=== PATIENT | female | born 1935 | race Caucasian/White ===

== ENCOUNTER 2018-07-10 09:17 | Inpatient (IN) | payer MEDICARE, OTHER ==
[~2018-07-10] VITALS: Ht 160 cm; Wt 63.5 kg
[~2018-07-10 09:17] MED LIST: ACETAMINOP650 MG/20. PO; ALBUTEROL/ATROVENT INH; ALBUTEROL2.5 MG/3 M HHN; AMBIEN5 MG ORAL; AMBIEN5 MG PO; ARICEPT5 MG ORAL; ASPIR 8181 MG ORAL; ATIVAN1 MG PO; ATIVAN2 MG/1 ML PO; ATORVASTATIN CA10 MG ORAL; ATROVENT INH S2.5 ML HHN; BACTRIM-DS1 EA PO; BENADRYL50 MG ORAL; BISACODYL5 MG PO; CALCIUM + VITA1 EACH PO; CARVEDILOL3.125 MG ORAL; CENTRUM SILVER1 EAC1 PO; CENTRUM TABLET1 EACH PO; DAILY VITAMIN1 EACH PO; DILAUDID1 MG/ML PO; DILAUDID2 MG PO; DSS100 MG PO; DULCOLAX10 MG RC; FERROUS SULFAT325 M1 PO; FERROUS SULFAT325 MG PO; HEPARIN SO5000 UNIT/ SUBQ; HEPARIN SO5000 UNIT3 SUBQ; HYDROCODON-ACE1 EAC4 PO; IMMODIUM PO; IMODIUM A-D2 M1 PO; LIDODERM700 M1 TOPIC; MEGACE ORA400 MG/10 PO; MILK OF MA400 MG/5 M PO; MILK OF MAGNESIA PO; MIRTAZAPINE15 MG PO; MOM30 ML PO; MORPHINE 44 MG/1 ML IVP; MULTIVITAMINS1 EAC1 PO; MYLANTA30 ML PO; NEURONTIN100 MG ORAL; NEURONTIN300 MG ORAL; NORCO 10-325 T1 EACH ORAL; ONDANSETRON ODT4 MG PO; PRADAXA150 MG ORAL; PROSTAT; PROSTAT 101 PO; REMERON15 M1 PO; ROCEPHIN250 MG IVPB; TRAMADOL HCL100 MG PO; TRAMADOL HCL50 MG PO; TYLENOL 8 HOUR650 MG PO; VANCOMYCIN1 GM/2502 IVPB; VIBRAMYCIN100 MG ORAL; VITAMIN C500 M1 PO; VITAMIN C500 MG PO; ZOFRAN ODT4 MG PO
[2018-07-10] MEDS ORDERED: ATORVASTATIN CA10 MG ORAL (09:27)
[2018-07-10] MEDS ORDERED: NEURONTIN100 MG ORAL (09:27)
[2018-07-10 09:28] VITALS: BP 99/86
[2018-07-10] MEDS ORDERED: MIRALAX17 G2 ORAL (09:30)
[2018-07-10] MEDS ORDERED: HYDROCORTISONE-30 GM TOPIC (09:30)
[2018-07-10] MEDS ORDERED: METOPROLOL SUCC25 MG ORAL (09:30)
[2018-07-10] MEDS ORDERED: LISINOPRIL5 MG ORAL (09:30)
[2018-07-10] MEDS ORDERED: Vancomycin 1 GM in NS 275 ML IV ONE (09:45)
[2018-07-10] MEDS ORDERED: Isovue-300 100ml vial INJ PRN (09:45)
[2018-07-10] MEDS ORDERED: Piperacillin/Tazobactam 3.375 GM in NS 110 ML IVPB ONE (09:45)
[2018-07-10] MEDS ORDERED: NS 1000ml 1,900 ML IVLG ONE (09:45)
[2018-07-10 10:20] LABS: EOSINOPHILS % (AUTO) 4.8 % (0.0-3.0); HEMATOCRIT 45.6 % (37.0-47.0); HEMOGLOBIN 14.9 G/DL (12.0-16.0); LYMPHOCYTES % (AUTO) 29.9 % (20.0-45.0); MEAN CORPUSCULAR VOLUME 90 FL (80-99); MONOCYTES % (AUTO) 6.9 % (1.0-10.0); NEUTROPHILS % (AUTO) 57.4 % (45.0-75.0); PLATELET COUNT 436 K/UL (150-450); RED BLOOD COUNT 5.07 M/UL (4.20-5.40); RED CELL DISTRIBUTION WIDTH 11.3 % (11.6-14.8); WHITE BLOOD COUNT 14.1 K/UL (4.8-10.8)
[2018-07-10 10:27] LABS: ANION GAP 10 mmol/L (5-15); BLOOD UREA NITROGEN 18 mg/dL (7-18); CALCIUM 9.7 MG/DL (8.5-10.1); CARBON DIOXIDE 27 MMOL/L (21-32); CHLORIDE 98 MMOL/L (98-107); CREATININE 0.6 MG/DL (0.55-1.30); POTASSIUM 4.1 MMOL/L (3.5-5.1); SODIUM 135 MMOL/L (136-145)
[2018-07-10 10:40] LABS: ALANINE AMINOTRANSFERASE 16 U/L (12-78); ALBUMIN 3.2 G/DL (3.4-5.0); ALBUMIN/GLOBULIN RATIO 0.5 (1.0-2.7); ALKALINE PHOSPHATASE 103 U/L (46-116); ASPARTATE AMINO TRANSFERASE 18 U/L (15-37); BILIRUBIN,TOTAL 0.3 MG/DL (0.2-1.0); CREATINE KINASE 32 U/L (26-308)
[2018-07-10 10:43] LABS: APPEARANCE,URINE TURBID; BILIRUBIN, URINE NEGATIVE (NEGATIVE); GLUCOSE, URINE (UA) NEGATIVE (NEGATIVE); KETONES,URINE NEGATIVE (NEGATIVE); LEUKOCYTE ESTERASE ,URINE 3+ (NEGATIVE); NITRITE,URINE NEGATIVE (NEGATIVE); PH,URINE 7 (4.5-8.0); PROTEIN,URINE 3+ (NEGATIVE); UROBILINOGEN,URINE NORMAL MG/DL (0.0-1.0)
[2018-07-10 10:46] LABS: COLOR,URINE YELLOW
[2018-07-10 11:30] VITALS: BP 109/60
--- NOTE | 2018-07-10 11:38 | Diagnostic Imaging Report ---
EXAM: XR Chest, 1 View CLINICAL HISTORY: DYSPNEA TECHNIQUE: Frontal view of the chest. COMPARISON: Chest x-ray report 03/20/11, images not available. FINDINGS: Lungs: Hypoventilatory lungs. Bibasilar lung atelectasis. Elevated right hemidiaphragm. Mild interstitial prominence. Pleural space: Unremarkable. No pneumothorax. Heart: Unremarkable. No cardiomegaly. Mediastinum: Unremarkable. Bones/joints: Unremarkable. Vasculature: Ectatic aorta. IMPRESSION: Hypoventilatory lungs. Bibasilar lung atelectasis. Mild interstitial prominence. May be mild interstitial edema or pneumonitis.
--- NOTE | 2018-07-10 12:09 | Emergency Room Report ---
History of Present Illness General Chief Complaint: General Complaint Source: Patient, EMS Present Illness HPI Patient sent in for infection in the left hip area. She states has been draining for several days. She's not taking antibiotics at this time. She only complains about pain when she rolls over onto that side. At that time she says the pain is 6/10. She denies any fevers or chills. The patient has paraplegia she states from a nurse pulling on her legs in the past. No NVD, cough, dysuria, back pain, other joint pain. Normal BMs. H/O dementia - question veracity of answers. Chewing on straw because of bad teeth. Last admitted 06/2016 with these diagnoses: 1. Sepsis. 2. Acute on chronic osteomyelitis with draining sinus. 3. Right femoral neck hip pathologic fracture. 4. Dementia. 5. Hypertension. 6. Cellulitis of the buttocks. 7. Atrial fibrillation, on anticoagulation. 8. Hyperlipidemia. 9. Functional quadriplegia. Allergies: Coded Allergies: SULFA (SULFONAMIDE ANTIBIOTICS) (Verified Allergy, Unknown, 10/18/09) Patient History Limited by: medical condition Past Medical History: see triage record, old chart reviewed Social History: Denies: smoking - distant, alcohol use, drug use Social History Narrative born [place] - [facility] Reviewed Nursing Documentation: PMH: Agreed; PSxH: Agreed Nursing Documentation-PM Past Medical History: No History, Except For Hx Cardiac Problems: Yes - A-fib Hx Hypertension: Yes Hx COPD: Yes Hx Cancer: No Hx Gastrointestinal Problems: No Hx Dementia: Yes Review of Systems All Other Systems: negative except mentioned in HPI Physical Exam Vital Signs Date Time Temp Pulse Resp B/P (MAP) Pulse Ox O2 Delivery O2 Flow Rate FiO2 07/10/18 09:18 97.5 72 18 126/70 92 Room Air General Appearance: Chronically Ill Head: normocephalic, atraumatic Eyes: bilateral eye normal inspection, bilateral eye PERRL ENT: moist mucus membranes - poor dentition Neck: supple, no meningismus, no bony tend Respiratory: chest non-tender, lungs clear, normal breath sounds Cardiovascular #1: regular rate, rhythm Cardiovascular #2: 2+ radial (L) Gastrointestinal: normal inspection, normal bowel sounds, non tender, soft Genitourinary: no CVA tenderness Musculoskeletal: back normal, other - flexion contractures bilat lower legs Neurologic: DTRs symmetric, speech normal, no Babinski, motor weakness - bilat lower legs, other - able to use arms and hands, oriented - X2 Reflexes: 1+ knee (R), 1+ knee (L) Skin: other - draining unstagable decubitus L hip Medical Decision Making Diagnostic Impression: Primary Impression: Cellulitis of left hip Additional Impressions: UTI (urinary tract infection) Qualified Codes: N39.0 - Urinary tract infection, site not specified Decubitus ulcer, hip, left, unstageable Functional paraparesis Dementia Qualified Codes: F03.90 - Unspecified dementia without behavioral disturbance ER Course Patient with L hip draining wound. DDX: osteomyelitis, cellulitis, abscess amongst others. Evaluation with cultures, EKG, CXR and CT of pelvis/hips with contrast. Treatment for pain. No URI sy, but CXR indicated. Also need to exclude AMI. Patient treated with IV hydration and antibiotics. Wound culture sent. EKG no injury, NSR (not a fib). CXR hypoventilation. Labs with elevated WBC, ihsan ESR. CMP essentially normal. UA with pyuria. Initial lactate slightly elevated (repeat normal). Unable to use IV contrast. CT done without. (Unsure why changed to abd/pelvis) . Patient needs continued IV antibiotics and probable MRI to evaluate if osteo ( though with normal sed rate, doubt). Admit med Dr. Anderson. Laboratory Tests Test 07/10/18 10:00 07/10/18 10:12 White Blood Count 14.1 K/UL (4.8-10.8) H Red Blood Count 5.07 M/UL (4.20-5.40) Hemoglobin 14.9 G/DL (12.0-16.0) Hematocrit 45.6 % (37.0-47.0) Mean Corpuscular Volume 90 FL (80-99) Mean Corpuscular Hemoglobin 29.5 PG (27.0-31.0) Mean Corpuscular Hemoglobin Concent 32.8 G/DL (32.0-36.0) Red Cell Distribution Width 11.3 % (11.6-14.8) L Platelet Count 436 K/UL (150-450) Mean Platelet Volume 5.9 FL (6.5-10.1) L Neutrophils (%) (Auto) 57.4 % (45.0-75.0) Lymphocytes (%) (Auto) 29.9 % (20.0-45.0) Monocytes (%) (Auto) 6.9 % (1.0-10.0) Eosinophils (%) (Auto) 4.8 % (0.0-3.0) H Basophils (%) (Auto) 1.0 % (0.0-2.0) Erythrocyte Sedimentation Rate 27 MM/HR (0-30) Prothrombin Time 10.4 SEC (9.30-11.50) Prothrombin Time INR 1.0 (0.9-1.1) PTT 28 SEC (23-33) Sodium Level 135 MMOL/L (136-145) L Potassium Level 4.1 MMOL/L (3.5-5.1) Chloride Level 98 MMOL/L (98-107) Carbon Dioxide Level 27 MMOL/L (21-32) Anion Gap 10 mmol/L (5-15) Blood Urea Nitrogen 18 mg/dL (7-18) Creatinine 0.6 MG/DL (0.55-1.30) Estimate Glomerular Filtration Rate mL/min (>60) Glucose Level 107 MG/DL (74-106) H Lactic Acid Level 2.10 mmol/L (0.4-2.0) H Calcium Level 9.7 MG/DL (8.5-10.1) Magnesium Level 1.8 MG/DL (1.8-2.4) Total Bilirubin 0.3 MG/DL (0.2-1.0) Aspartate Amino Transferase (AST) 18 U/L (15-37) Alanine Aminotransferase (ALT) 16 U/L (12-78) Alkaline Phosphatase 103 U/L (46-116) Total Creatine Kinase 32 U/L (26-308) Troponin I 0.000 ng/mL (0.000-0.056) C-Reactive Protein, Quantitative 1.1 mg/dL (0.00-0.90) H Pro-B-Type Natriuretic Peptide 93 pg/mL (0-125) Total Protein 9.9 G/DL (6.4-8.2) H Albumin 3.2 G/DL (3.4-5.0) L Globulin 6.7 g/dL Albumin/Globulin Ratio 0.5 (1.0-2.7) L Urine Color Yellow Urine Appearance Turbid Urine pH 7 (4.5-8.0) Urine Specific [place] 1.010 (1.005-1.035) Urine Protein 3+ (NEGATIVE) H Urine Glucose (UA) Negative (NEGATIVE) Urine Ketones Negative (NEGATIVE) Urine Blood 5+ (NEGATIVE) H Urine Nitrite Negative (NEGATIVE) Urine Bilirubin Negative (NEGATIVE) Urine Urobilinogen Normal MG/DL (0.0-1.0) Urine Leukocyte Esterase 3+ (NEGATIVE) H Urine RBC 20-30 /HPF (0 - 2) H Urine WBC Tntc /HPF (0 - 2) H Urine Squamous Epithelial Cells Few /LPF (NONE/OCC) Urine Amorphous Sediment Many /LPF (NONE) H Urine Bacteria Many /HPF (NONE) H EKG Diagnostic Results Rate: normal Rhythm: NSR ST Segments: no acute changes Rhythm Strip Diag. Results EP Interpretation: yes Rhythm: NSR, no PVC's, no ectopy Chest X-Ray Diagnostic Results Chest X-Ray Diagnostic Results : Chest X-Ray Ordered: Yes # of Views/Limited/Complete: 1 View Indication: Other Interpretation: no consolidation, no effusion, no pneumothorax, other - hypoventilation Impression: Other Electronically Signed by: Parag Husain MD CT/MRI/US Diagnostic Results CT/MRI/US Diagnostic Results : Imaging Test Ordered: pelvis and hip - but abd and pelvis done Impression 1. Vertical lucency bilateral sacrum may be insufficiency fractures. 2. Osteopenic. T9, T12, L1 and L3 mild compression deformities are age- indeterminate. 3. Colonic diverticulosis without acute diverticulitis. 4. 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 5. 5.3 cm fecal distended rectum. Moderate colonic stool load/constipation. 6. Small air in the urinary bladder may be from recent catheterization, correlate for gas producing cystitis. Thickening of the urinary bladder. Last Vital Signs Date Time Temp Pulse Resp B/P (MAP) Pulse Ox O2 Delivery O2 Flow Rate FiO2 07/10/18 20:00 96.8 54 16 143/83 (103) 94 07/10/18 15:47 Room Air Status: improved Disposition: ADMITTED INPATIENT Condition: Serious Referrals: Dallin Anderson DO (PCP) Parag Husain MD Jul 10, 2018 12:09
[2018-07-10] MEDS ORDERED: oxyCODONE HCL/Acetaminophen 5/325mg ORAL ONE (12:45)
[2018-07-10 14:00] VITALS: BP 110/77
[2018-07-10] MEDS ORDERED: Vancomycin 1gm inj IVPB ONE (14:11)
[2018-07-10] MEDS ORDERED: Morphine Sulfate 2mg/ml Inj IVP PRN (14:45)
[2018-07-10] MEDS ORDERED: Miralax 17gm pkt ORAL PRN (14:45)
[2018-07-10] MEDS ORDERED: Mylanta II UD 30ml ORAL PRN (14:45)
[2018-07-10] MEDS ORDERED: LORazepam Inj 2mg/ml 1ml IV PRN (14:45)
--- NOTE | 2018-07-10 14:57 | Diagnostic Imaging Report ---
EXAM: CT Abdomen and Pelvis With Intravenous Contrast CLINICAL HISTORY: OSTEOMY TECHNIQUE: Axial computed tomography images of the abdomen and pelvis with intravenous contrast. CTDI is 16.82 mGy and DLP is 1090 mGy-cm. One or more of the following dose reduction techniques were used: automated exposure control, adjustment of the mA and/or kV according to patient size, use of iterative reconstruction technique. COMPARISON: CT pelvis 05/13/13 FINDINGS: Lung bases: Bibasilar lung atelectasis. ABDOMEN: Liver: Prominent left lobe of the liver. Tiny low-density lesions right lobe of the liver measuring 5 mm. Gallbladder and bile ducts: Unremarkable. No calcified stones. No ductal dilation. Pancreas: Unremarkable. No mass. No ductal dilation. Spleen: Unremarkable. No splenomegaly. Adrenals: Unremarkable. No mass. Kidneys and ureters: 7 mm right renal hyperdense lesion. No hydronephrosis. Stomach and bowel: Colonic diverticulosis without acute diverticulitis. 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 5.3 cm fecal distended rectum. Moderate colonic stool load/constipation. PELVIS: Appendix: No findings to suggest acute appendicitis. Bladder: Small air in the urinary bladder may be from recent catheterization, correlate for gas producing cystitis. Thickening of the urinary bladder. Reproductive: Uterus absent. ABDOMEN and PELVIS: Intraperitoneal space: Unremarkable. No free air. No significant fluid collection. Bones/joints: Vertical lucency bilateral sacrum may be insufficiency fractures. Osteopenic. T9, T12, L1 and L3 mild compression deformities are age-indeterminate. Osteopenic. Old right pelvic fracture. Old femoral intratrochanteric fracture with deformity. Hyperdense left femoral head and absence of the femoral neck. Residual femoral stem prosthesis with a thin rim of lucency around the femoral stem. No dislocation. Soft tissues: Left lower back subcutaneous 2 x 3.2 cm there may be a sebaceous cyst. Vasculature: Atherosclerotic vascular disease. No abdominal aortic aneurysm. Lymph nodes: Unremarkable. No enlarged lymph nodes. IMPRESSION: 1. Vertical lucency bilateral sacrum may be insufficiency fractures. 2. Osteopenic. T9, T12, L1 and L3 mild compression deformities are age- indeterminate. 3. Colonic diverticulosis without acute diverticulitis. 4. 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 5. 5.3 cm fecal distended rectum. Moderate colonic stool load/constipation. 6. Small air in the urinary bladder may be from recent catheterization, correlate for gas producing cystitis. Thickening of the urinary bladder.
[2018-07-10 15:24] VITALS: BP 130/53
[2018-07-10 16:37] VITALS: BP 116/55
[2018-07-10 20:00] VITALS: BP 143/83
[2018-07-10] MEDS: Zolpidem 5mg tab ORAL PRN (23:55)
[2018-07-11] VITALS: BP 135/65
[2018-07-11 04:00] VITALS: BP 127/53
[2018-07-11 07:32] LABS: BASOPHILS % (AUTO) 0.8 % (0.0-2.0); EOSINOPHILS % (AUTO) 3.6 % (0.0-3.0); HEMATOCRIT 37.1 % (37.0-47.0); HEMOGLOBIN 12.2 G/DL (12.0-16.0); LYMPHOCYTES % (AUTO) 37.8 % (20.0-45.0); MEAN CORPUSCULAR VOLUME 90 FL (80-99); MONOCYTES % (AUTO) 8.5 % (1.0-10.0); NEUTROPHILS % (AUTO) 49.4 % (45.0-75.0); PLATELET COUNT 415 K/UL (150-450); RED BLOOD COUNT 4.14 M/UL (4.20-5.40); RED CELL DISTRIBUTION WIDTH 11.2 % (11.6-14.8); WHITE BLOOD COUNT 10.5 K/UL (4.8-10.8)
[2018-07-11 07:49] LABS: ALANINE AMINOTRANSFERASE 14 U/L (12-78); ALBUMIN 2.7 G/DL (3.4-5.0); ALBUMIN/GLOBULIN RATIO 0.5 (1.0-2.7); ALKALINE PHOSPHATASE 87 U/L (46-116); ANION GAP 9 mmol/L (5-15); ASPARTATE AMINO TRANSFERASE 16 U/L (15-37); BILIRUBIN,TOTAL 0.2 MG/DL (0.2-1.0); BLOOD UREA NITROGEN 9 mg/dL (7-18); CALCIUM 8.7 MG/DL (8.5-10.1); CARBON DIOXIDE 25 MMOL/L (21-32); CHLORIDE 100 MMOL/L (98-107); CHOLESTEROL 131 MG/DL (< 200); CREATININE 0.5 MG/DL (0.55-1.30); HDL CHOLESTEROL 51 MG/DL (40-60); SODIUM 134 MMOL/L (136-145); TRIGLYCERIDES 76 MG/DL (30-150)
[2018-07-11 08:00] VITALS: BP 129/78
[2018-07-11] MEDS: Nystatin Powder 100,000 units/gm 15gm TOPIC SCH ×3 (08:30→17:41)
--- NOTE | 2018-07-11 09:45 | History and Physical Report ---
DATE OF ADMISSION: 07/10/2018 TIME SEEN: 8 a.m. CONSULTANTS: 1. Shaun Castellon M.D. 2. Sha Clark M.D. 3. Bassam Mccollum M.D. CHIEF COMPLAINT: Left hip cellulitis, draining. BRIEF HISTORY: This is an 83-year-old female, who lives at [facility], presents with two-day increased left hip draining cellulitis and pain. She does have a history of left hip trauma, status post surgery with nonhealing wound. The patient came to [facility], diagnosed with the above, admitted to medical floor for further treatment. Currently, calm in bed, actually slightly anxious in bed, oriented x3, in no acute distress. REVIEW OF SYSTEMS: No chest pain. No shortness of breath. No nausea, vomiting, or diarrhea. PAST MEDICAL HISTORY: Left hip trauma, status post surgery and hip drainage, cellulitis, and weakness. PAST SURGICAL HISTORY: Left hip. MEDICATIONS: Include nystatin, Tylenol, morphine, polyethylene glycol, Zolpidem, lorazepam, vancomycin, and levofloxacin. ALLERGIES: Sulfa. SOCIAL HISTORY: No smoking. No alcohol. No intravenous drug abuse. FAMILY HISTORY: Noncontributory. PHYSICAL EXAMINATION: GENERAL: Calm in bed, oriented x3, slightly anxious. VITAL SIGNS: Temperature is 96, pulse 68, respirations 17, and blood pressure 127/53. CARDIOVASCULAR: No murmur. LUNGS: Distant and clear. ABDOMEN: Bowel sounds positive. Nontender. Nondistended EXTREMITIES: No cyanosis, clubbing, or edema. Hip and knee flexed about 90 degrees. Left hip dressing clean and dry. NEUROLOGIC: The patient moves all extremities, slightly weak, especially lower extremities. LABORATORY DATA: Laboratories at this time show initial white count , otherwise CBC is normal. BMP shows sodium 134, creatinine 0.5. Albumin 2.7. Otherwise, BMP is normal. Urinalysis shows 3+ leukocyte esterase. ASSESSMENT: 1. Left hip cellulitis. 2. UTI. 3. Hip pain. 4. Weakness. 5. Hypertension. 6. Decubitus ulcer. 7. Malnutrition. PLAN: 1. OT, PT, and dietary. 2. Followup wound care. 3. Antibiotic per Infectious Disease. 4. CBC and BMP in the morning. 5. Resume home medications. 6. Pain control. 7. We will continue to follow the patient. Dallin Anderson D.O. DR: JANE JOB#: [id number] CC:
[2018-07-11 12:00] VITALS: BP 129/78
--- NOTE | 2018-07-11 12:04 | Consultation ---
History of Present Illness General Date patient seen: Jul 11, 2018 Time patient seen: 10:00 Chief Complaint: left hip infection Referring physician: dr Anderson Reason for Consultation: in hospital management Present Illness HPI 83 y/old female, resident of nursing home facility, with PMH of chronic osteomyelitis, dementia, hypertension ,atrial fibrillation, hyperlipidemia, right femoral neck pathological fracture, was sent for evaluation due to infection in the left hip. Patient had left hip un-stageable pressure ulcer ,present on admission. Patient reported draining at the site for several days . Patient was not on any antibiotics . She reported pain upon rolling from [id number], 6 out of 10 on a scale 1-10. No fever, no chills. Upon evaluation vital signs were stable, no fever. Laboratory workup revealed leukocytosis ,elevated lactic acid ,urinalysis with evidence of UTI. Troponin negative . EKG revealed normal sinus rhythm, no acute ischemic changes. Chest x-ray revealed hypoventilatory lungs with bibasilar lung atelectasis and mild interstitial prominence. CT of the abdomen and pelvis revealed 1. Vertical lucency bilateral in sacrum , may be insufficiency fractures. 2. Osteopenia. T9, T12, L1 and L3 mild compression deformities - age- indeterminate. 3. Colonic diverticulosis without acute diverticulitis. 4. 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 5. 5.3 cm fecal distended rectum. Moderate colonic stool load/constipation. 6. Small air in the urinary bladder may be from recent catheterization, correlate for gas producing cystitis. Thickening of the urinary bladder. Patient was admitted for further management Allergies: Coded Allergies: SULFA (SULFONAMIDE ANTIBIOTICS) (Verified Allergy, Unknown, 10/18/09) Medication History Scheduled Ascorbic Acid (Vitamin C), 500 MG PO DAILY, (Reported) Aspirin* (Aspir 81*), 81 MG ORAL DAILY, (Reported) Atorvastatin Calcium* (Lipitor*), 10 MG ORAL BEDTIME, (Reported) Atorvastatin Calcium* (Lipitor*), 10 MG ORAL BEDTIME, (Reported) Calcium Carbonate/Vitamin D3 (Calcium + Vitamin D Tablet), 1 EACH PO DAILY, ( Reported) Carvedilol* (Carvedilol*), 3.125 MG ORAL BID, (Reported) Ceftriaxone Sod (Rocephin), 2 GM IVPB DAILY, (Reported) Dabigatran Etexilate Mesylate* (Pradaxa*), 150 MG ORAL BID, (Reported) Docusate Sodium* (Dss*), 100 MG PO BID, (Reported) Donepezil Hcl* (Aricept*), 5 MG ORAL DAILY, (Reported) Doxycycline Hyclate* (Vibramycin*), 100 MG ORAL BID, (Reported) Ferrous Sulfate* (Ferrous Sulfate*), 325 MG PO TID, (Reported) Gabapentin (Neurontin), 300 MG ORAL THREE TIMES A DAY, (Reported) Gabapentin* (Neurontin*), 200 MG ORAL THREE TIMES A DAY, (Reported) Gabapentin* (Neurontin*), 300 MG ORAL THREE TIMES A DAY, (Reported) Heparin Sodium,Porcine/Pf (Heparin Sod 5,000 Unit/ 0.5 Ml), 5,000 UNIT SUBQ Q12HR, (Reported) Hydrocodone Bit/Acetaminophen 5-500 (Vicodin 5-500), 1 EACH PO PRN, (Reported) Lidocaine (Lidoderm), 1 PATCH TOPIC DAILY, (Reported) Lisinopril (Lisinopril*), 10 MG ORAL DAILY, (Reported) Megestrol Acetate (Megestrol Acetate), 400 MG PO BID, (Reported) Metoprolol Succinate* (Metoprolol Succinate*), 25 MG ORAL DAILY, (Reported) Mirtazapine* (Remeron*), 7.5 MG PO QHS, (Reported) Multivitamin (Daily Vitamin), 1 EACH PO DAILY, (Reported) Multivitamin W-Minerals/Lutein (Centrum Silver Tablet), 1 EACH PO DAILY, ( Reported) Tramadol Hcl* (Ultram*), 50 MG PO Q6H, (Reported) Trimethoprim/Sulfamethoxazole (Bactrim Ds Tablet), 1 EA PO BID, (Reported) Vancomycin Hcl/D5w (Vancomycin-D5w 1 G/250 Ml), 750 GM IVPB Q24H, (Reported) Zolpidem Tartrate* (Ambien*), 5 MG PO HS, (Reported) [Prostat 101], 30 ML PO DAILY, (Reported) Scheduled PRN Acetaminophen* (Tylenol*), 650 MG PO Q4H PRN, (Reported) Al Hydroxide/Mg Hydroxide (Mylanta), 30 ML PO ACHS PRN, (Reported) Albuterol Sulfate* (Albuterol Sulfate Hhn*), 2.5 MG HHN Q4H PRN, (Reported) Bisacodyl (Dulcolax), 10 MG RC DAILY PRN, (Reported) Bisacodyl* (Dulcolax*), 10 MG PO DAILY PRN, (Reported) Diphenhydramine HCl (Diphenhydramine HCl), 50 MG ORAL Q6H PRN for Itching, ( Reported) Hydrocodone Bit/Acetaminophen 10-325* (Clifford 10-325*), 1 TAB ORAL Q4H PRN for For Pain, (Reported) Hydrocortisone/Aloe Vera 1%* (Hydrocortisone-Aloe 1% Cream*), 1 APPLIC TOPIC Q6H PRN for Itching, (Reported) Hydromorphone HCl (Dilaudid), 2 MG PO Q4H PRN, (Reported) Ipratropium [place] (Atrovent Inh Soln), 2.5 ML HHN Q4HR PRN, (Reported) Loperamide Hcl (Imodium A-D), 2 MG PO Q4 PRN, (Reported) Lorazepam* (Ativan*), 1 MG PO Q6HR PRN, (Reported) Lorazepam* (Ativan*), 1 MG PO Q6 PRN, (Reported) Magnesium Hydroxide (Milk of Magnesia), 30 ML PO DAILY PRN, (Reported) Morphine Sulfate/Pf (Morphine 4 Mg/Ml Carpuject), 4 MG IVP Q4HR PRN for For Pain , (Reported) Ondansetron Odt* (Zofran Odt*), 4 MG PO Q4HR PRN, (Reported) Polyethylene Glycol 3350* (Miralax*), 17 GM ORAL DAILY PRN for Constipation, ( Reported) Zolpidem Tartrate* (Ambien*), 5 MG ORAL BEDTIME PRN for Insomnia, (Reported) [Albuterol/Atrovent], 1 UNIT INH Q4 PRN, (Reported) [Immodium], 2 MG PO Q4HR PRN, (Reported) [Milk Of Magnesia], 30 ML PO DAILY PRN, (Reported) Miscellaneous Medications Fa/Mv,Ca,Iron,Min/Lycopene/Lut (Centrum Tablet), 1 EACH PO, (Reported) Magnesium Hydroxide (Milk Of Magnesia), 400 MG PO, (Reported) Patient History History Provided By: Medical Record Healthcare decision maker Resuscitation status Full Code Advanced Directive on File No Past Medical/Surgical History Past Medical/Surgical History: (1) Hip fracture (2) Anemia (3) HTN (hypertension) (4) Hyperlipidemia (5) Dementia (6) Decubitus ulcer, hip, left, unstageable Review of Systems Constitutional: Reports: weakness Eye: Reports: no symptoms ENT: Reports: hearing loss Respiratory: Reports: no symptoms Cardiovascular: Reports: no symptoms Gastrointestinal: Reports: constipation Genitourinary: Reports: incontinence, urgency Musculoskeletal: Reports: muscle stiffness, other - osteopenia, compression fractures( per chart) Skin: Reports: other - left hip decub ucler POA Psychiatric: Reports: other - dementia Neurological: Reports: no symptoms Endocrine: Reports: no symptoms Hematologic/Lymphatic: Reports: no symptoms ROS Narrative all info mainly obtained from EMR due to patient's dementia and inability to answer most of the questions Physical Exam General Appearance: no apparent distress, alert - able to answer only simple questions , confused Lines, tubes and drains: peripheral HEENT: normocephalic, atraumatic, anicteric, mucous membranes moist Neck: non-tender, supple Respiratory/Chest: lungs clear - with moderate air exchange , no respiratory distress, no accessory muscle use Cardiovascular/Chest: normal peripheral pulses, normal rate Abdomen: non tender, soft Skin Exam: warm/dry Neurologic: no motor/sensory deficits, abnormal gait, alert Musculoskeletal: atrophy - BLE Last 24 Hour Vital Signs Date Time Temp Pulse Resp B/P (MAP) Pulse Ox O2 Delivery O2 Flow Rate FiO2 07/11/18 09:00 Room Air 07/11/18 08:00 97.7 69 20 129/78 (95) 96 07/11/18 04:00 96.8 68 17 127/53 (77) 97 07/11/18 00:00 96.6 62 17 135/65 (88) 95 07/10/18 21:00 Room Air 07/10/18 20:00 96.8 54 16 143/83 (103) 94 07/10/18 16:37 96.8 58 17 116/55 (75) 97 07/10/18 15:47 98.4 62 16 130/53 96 Room Air 07/10/18 15:24 98.4 62 16 130/53 96 Room Air 07/10/18 14:00 98.0 72 17 110/77 100 Room Air 07/10/18 13:27 98.4 Intake and Output 07/10/18 07/11/18 19:00 07:00 Intake Total 2400 ml Balance 2400 ml Intake Oral 240 ml IV Total 2160 ml # Voids 2 3 # Bowel Movements 1 Laboratory Tests Test 07/10/18 13:43 07/11/18 04:50 Lactic Acid Level 1.10 mmol/L (0.66-2.22) White Blood Count 10.5 K/UL (4.8-10.8) Red Blood Count 4.14 M/UL (4.20-5.40) L Hemoglobin 12.2 G/DL (12.0-16.0) Hematocrit 37.1 % (37.0-47.0) Mean Corpuscular Volume 90 FL (80-99) Mean Corpuscular Hemoglobin 29.5 PG (27.0-31.0) Mean Corpuscular Hemoglobin Concent 32.9 G/DL (32.0-36.0) Red Cell Distribution Width 11.2 % (11.6-14.8) L Platelet Count 415 K/UL (150-450) Mean Platelet Volume 5.8 FL (6.5-10.1) L Neutrophils (%) (Auto) 49.4 % (45.0-75.0) Lymphocytes (%) (Auto) 37.8 % (20.0-45.0) Monocytes (%) (Auto) 8.5 % (1.0-10.0) Eosinophils (%) (Auto) 3.6 % (0.0-3.0) H Basophils (%) (Auto) 0.8 % (0.0-2.0) Sodium Level 134 MMOL/L (136-145) L Potassium Level 4.0 MMOL/L (3.5-5.1) Chloride Level 100 MMOL/L (98-107) Carbon Dioxide Level 25 MMOL/L (21-32) Anion Gap 9 mmol/L (5-15) Blood Urea Nitrogen 9 mg/dL (7-18) Creatinine 0.5 MG/DL (0.55-1.30) L Estimat Glomerular Filtration Rate mL/min (>60) Glucose Level 83 MG/DL (74-106) Calcium Level 8.7 MG/DL (8.5-10.1) Total Bilirubin 0.2 MG/DL (0.2-1.0) Aspartate Amino Transf (AST/SGOT) 16 U/L (15-37) Alanine Aminotransferase (ALT/SGPT) 14 U/L (12-78) Alkaline Phosphatase 87 U/L (46-116) Total Protein 8.3 G/DL (6.4-8.2) H Albumin 2.7 G/DL (3.4-5.0) L Globulin 5.6 g/dL Albumin/Globulin Ratio 0.5 (1.0-2.7) L Triglycerides Level 76 MG/DL (30-150) Cholesterol Level 131 MG/DL (< 200) LDL Cholesterol 75 mg/dL (<100) HDL Cholesterol 51 MG/DL (40-60) Cholesterol/HDL Ratio 2.6 (3.3-4.4) L Thyroid Stimulating Hormone (TSH) 3.022 uiU/mL (0.358-3.740) Height (Feet): 5 Height (Inches): 3.00 Weight (Pounds): 140 Medications Current Medications Medications (Trade) Dose Ordered Sig/Andi Route PRN Reason Start Time Stop Time Status Last Admin Dose Admin Acetaminophen (Tylenol) 650 mg Q4H PRN ORAL Mild Pain/Temp > 100.5 07/10/18 20:16 08/09/18 20:15 07/10/18 20:37 Al Hydroxide/Mg Hydroxide (Mylanta II) 30 ml Q6H PRN ORAL dyspepsia 07/10/18 14:45 08/09/18 14:44 Dextrose (Dextrose 50%) 25 ml Q30M PRN IV Hypoglycemia 07/10/18 15:00 08/09/18 14:48 Dextrose (Dextrose 50%) 50 ml Q30M PRN IV hypoglycemia 07/10/18 15:00 08/09/18 14:59 Iopamidol (Isovue-300 100ml) 100 ml NOW PRN INJ Radiology Procedure 07/10/18 09:45 Lorazepam (Ativan 2mg/ml 1ml) 0.5 mg Q4H PRN IV For Anxiety 07/10/18 14:45 07/17/18 14:44 Morphine Sulfate (Morphine Sulfate) 1 mg Q4H PRN IVP For Pain 07/10/18 14:45 07/17/18 14:44 Nystatin (Nystop Powder) 1 applic THREE TIMES A DAY TOPIC 07/11/18 09:00 08/10/18 08:59 07/11/18 08:30 Ondansetron HCl (Zofran) 4 mg Q6H PRN IVP Nausea & Vomiting 07/10/18 14:45 08/09/18 14:44 Polyethylene Glycol (Miralax) 17 gm HSPRN PRN ORAL Constipation 07/10/18 14:45 08/09/18 14:44 Zolpidem Tartrate (Ambien) 5 mg HSPRN PRN ORAL Insomnia 07/10/18 14:45 07/17/18 14:44 07/10/18 23:55 Assessment/Plan Assessment/Plan ASSESSMENT Probably sepsis UTI Chronic osteomyelitis Left hip cellulitis Left hip pressure ulcer, present on admission un-stageable Osteopenia with multiple compression fractures, probably old Constipation Functional quadriplegia Hypertension Atrial fibrillation Dementia PLAN of CARE [facility] floor empiric antibiotics f/up with cx ID consult pain management wound care per protocol BP management with BB and PRESTON rate control with BB , currently in sinus rhythm continue ASA and statin, lipid panel stable , no anticoagulation for now , given high risk for falls fall precautions ortho eval pending as per PMD PT/OT dietary eval and recs to be included in POC to improve nutritional status Venous duplex bilateral lower extremity continue Aricept bowel regimen supportive care case discussed and evaluated by supervising physician Griselda Roberson NP Jul 11, 2018 12:04
[2018-07-11] MEDS ORDERED: Miralax 17gm pkt ORAL PRN (12:15)
[2018-07-11] MEDS ORDERED: Albuterol/Ipratropium 3ml neb HHN PRN (12:36)
[2018-07-11 15:40] VITALS: BP 123/72
[2018-07-11] MEDS ORDERED: Levofloxacin 500mg tab ORAL SCH (16:30)
[2018-07-11] MEDS ORDERED: cefTRIAXone 1 GM in D5W 55 ML IVPB SCH (17:00)
[2018-07-11] MEDS: Docusate 100mg cap ORAL SCH (17:41)
[2018-07-11 20:00] VITALS: BP 110/50
[2018-07-11] MEDS: Zolpidem 5mg tab ORAL PRN (23:14)
[2018-07-12] VITALS: BP 133/63
[2018-07-12 04:02] VITALS: BP 114/55
[2018-07-12 07:31] LABS: BASOPHILS % (AUTO) 1.4 % (0.0-2.0); HEMOGLOBIN 14.3 G/DL (12.0-16.0); LYMPHOCYTES % (AUTO) 42.8 % (20.0-45.0); MEAN CORPUSCULAR VOLUME 89 FL (80-99); MONOCYTES % (AUTO) 11.5 % (1.0-10.0); NEUTROPHILS % (AUTO) 39.3 % (45.0-75.0); PLATELET COUNT 380 K/UL (150-450); RED BLOOD COUNT 4.74 M/UL (4.20-5.40); RED CELL DISTRIBUTION WIDTH 10.8 % (11.6-14.8); WHITE BLOOD COUNT 6.9 K/UL (4.8-10.8)
[2018-07-12 07:46] LABS: ANION GAP 9 mmol/L (5-15); BLOOD UREA NITROGEN 9 mg/dL (7-18); CALCIUM 8.9 MG/DL (8.5-10.1); CARBON DIOXIDE 25 MMOL/L (21-32); CHLORIDE 99 MMOL/L (98-107); CREATININE 0.6 MG/DL (0.55-1.30); POTASSIUM 4.1 MMOL/L (3.5-5.1); SODIUM 133 MMOL/L (136-145)
[2018-07-12 08:00] VITALS: BP 116/57
[2018-07-12] MEDS: Aspirin EC 81mg tab ORAL SCH (08:37)
[2018-07-12] MEDS: Lisinopril 10mg tab ORAL SCH (08:37)
[2018-07-12] MEDS: Donepezil 5mg Tab ORAL SCH (08:37)
[2018-07-12] MEDS: Docusate 100mg cap ORAL SCH ×2 (08:39→17:41)
[2018-07-12] MEDS: Memantine 10mg tab ORAL SCH ×2 (08:39→17:41)
[2018-07-12] MEDS: Nystatin Powder 100,000 units/gm 15gm TOPIC SCH ×3 (09:11→17:37)
[2018-07-12 12:00] VITALS: BP 120/61
--- NOTE | 2018-07-12 13:08 | Diagnostic Imaging Report ---
APPROVED REPORT CPT Code: 19703 Present Symptoms Comments: Pain Technically difficult study. Limited compression due to pain and (patient has BLE contractures of the hip and knee). RIGHT LEG: Venous imaging reveals a patent deep venous system. There is no evidence of thrombus within the common and superficial femoral veins. The greater saphenous vein is also within normal limits. Doppler indicates normal spontaneous flow within these segments. The popliteal or tibial segment not well visualized. LEFT LEG: Venous imaging reveals a patent deep venous system. There is no evidence of thrombus within the femoral, popliteal or tibial segments. The greater saphenous vein is also within normal limits. Doppler indicates normal spontaneous flow within these segments.
--- NOTE | 2018-07-12 13:10 | General Progress Note ---
Assessment/Plan Problem List: (1) Malnutrition ICD Codes: E46 - Unspecified protein-calorie malnutrition SNOMED: 59413714 (2) Sepsis ICD Codes: A41.9 - Sepsis, unspecified organism SNOMED: 60883039 (3) Left hip pain ICD Codes: M25.552 - Pain in left hip SNOMED: 74547015 (4) Decubitus ulcer, hip, left, unstageable ICD Codes: L89.220 - Pressure ulcer of left hip, unstageable SNOMED: 100646624 (5) HTN (hypertension) ICD Codes: I10 - Essential (primary) hypertension SNOMED: 98423244 Status: stable, progressing Assessment/Plan ot pt diet wound care abx sx eval cbc bmp am dc plan Subjective Constitutional: Reports: weakness Allergies: Coded Allergies: SULFA (SULFONAMIDE ANTIBIOTICS) (Verified Allergy, Unknown, 10/18/09) All Systems: reviewed and negative except above Subjective sl anxious in bed eating Objective Last 24 Hour Vital Signs Date Time Temp Pulse Resp B/P (MAP) Pulse Ox O2 Delivery O2 Flow Rate FiO2 07/12/18 12:31 78 18 Room Air 21 07/12/18 09:07 Room Air 07/12/18 08:37 114/55 07/12/18 08:00 97.6 61 18 116/57 (76) 98 07/12/18 04:02 97.4 58 18 114/55 (74) 97 07/12/18 00:00 97.9 59 18 133/63 (86) 94 07/11/18 22:49 Room Air 07/11/18 20:03 71 18 Room Air 21 07/11/18 20:00 97.5 57 19 110/50 (70) 94 07/11/18 17:41 75 132/73 07/11/18 15:40 98.1 75 20 123/72 (89) 95 Intake and Output 07/11/18 07/12/18 19:00 07:00 Intake Total 900 ml Balance 900 ml Intake Oral 900 ml # Voids 1 1 Laboratory Tests 07/12/18 07:00: White Blood Count 6.9, Red Blood Count 4.74, Hemoglobin 14.3, Hematocrit 42.0, Mean Corpuscular Volume 89, Mean Corpuscular Hemoglobin 30.2, Mean Corpuscular Hemoglobin Concent 34.1, Red Cell Distribution Width 10.8L, Platelet Count 380, Mean Platelet Volume 6.0L, Neutrophils (%) (Auto) 39.3L, Lymphocytes (%) (Auto) 42.8, Monocytes (%) (Auto) 11.5H, Eosinophils (%) (Auto) 5.0H, Basophils (%) ( Auto) 1.4, Sodium Level 133L, Potassium Level 4.1, Chloride Level 99, Carbon Dioxide Level 25, Anion Gap 9, Blood Urea Nitrogen 9, Creatinine 0.6, Estimat Glomerular Filtration Rate , Glucose Level 101, Calcium Level 8.9 Height (Feet): 5 Height (Inches): 3.00 Weight (Pounds): 140 General Appearance: lethargic EENT: normal ENT inspection Neck: normal alignment Cardiovascular: normal peripheral pulses, normal rate, regular rhythm Respiratory/Chest: chest wall non-tender, lungs clear, normal breath sounds Abdomen: normal bowel sounds, non tender, soft Extremities: normal inspection Edema: no edema noted Arm (L), no edema noted Arm (R), no edema noted Leg (L), no edema noted Leg (R), no edema noted Pedal (L), no edema noted Pedal (R), no edema noted Generalized Neurologic: responsive, motor weakness Skin: normal pigmentation, warm/dry Objective hip knee contracture 90 degrees, wound dressing c&d Dallin Anderson DO Jul 12, 2018 13:10
--- NOTE | 2018-07-12 14:25 | Consultation ---
History of Present Illness General Date patient seen: Jul 12, 2018 Chief Complaint: General Complaint Referring physician: dr Anderson Reason for Consultation: wound Present Illness HPI 83 year old female who is a longterm facility resident with PMHx of chronic osteomyelitis, dementia, hypertension ,atrial fibrillation, hyperlipidemia, right femoral neck pathological fracture, etc, who was sent for evaluation due to infection in the left hip wound. Patient had a left hip un- stageable pressure ulcer present on admission with drainage. Wound noted on admission and surgery called to assist with care and management. patient seen, chart reviewed, patient examined. Allergies: Coded Allergies: SULFA (SULFONAMIDE ANTIBIOTICS) (Verified Allergy, Unknown, 10/18/09) Medication History Scheduled Ascorbic Acid (Vitamin C), 500 MG PO DAILY, (Reported) Aspirin* (Aspir 81*), 81 MG ORAL DAILY, (Reported) Atorvastatin Calcium* (Lipitor*), 10 MG ORAL BEDTIME, (Reported) Atorvastatin Calcium* (Lipitor*), 10 MG ORAL BEDTIME, (Reported) Calcium Carbonate/Vitamin D3 (Calcium + Vitamin D Tablet), 1 EACH PO DAILY, ( Reported) Carvedilol* (Carvedilol*), 3.125 MG ORAL BID, (Reported) Ceftriaxone Sod (Rocephin), 2 GM IVPB DAILY, (Reported) Dabigatran Etexilate Mesylate* (Pradaxa*), 150 MG ORAL BID, (Reported) Docusate Sodium* (Dss*), 100 MG PO BID, (Reported) Donepezil Hcl* (Aricept*), 5 MG ORAL DAILY, (Reported) Doxycycline Hyclate* (Vibramycin*), 100 MG ORAL BID, (Reported) Ferrous Sulfate* (Ferrous Sulfate*), 325 MG PO TID, (Reported) Gabapentin (Neurontin), 300 MG ORAL THREE TIMES A DAY, (Reported) Gabapentin* (Neurontin*), 200 MG ORAL THREE TIMES A DAY, (Reported) Gabapentin* (Neurontin*), 300 MG ORAL THREE TIMES A DAY, (Reported) Heparin Sodium,Porcine/Pf (Heparin Sod 5,000 Unit/ 0.5 Ml), 5,000 UNIT SUBQ Q12HR, (Reported) Hydrocodone Bit/Acetaminophen 5-500 (Vicodin 5-500), 1 EACH PO PRN, (Reported) Lidocaine (Lidoderm), 1 PATCH TOPIC DAILY, (Reported) Lisinopril (Lisinopril*), 10 MG ORAL DAILY, (Reported) Megestrol Acetate (Megestrol Acetate), 400 MG PO BID, (Reported) Metoprolol Succinate* (Metoprolol Succinate*), 25 MG ORAL DAILY, (Reported) Mirtazapine* (Remeron*), 7.5 MG PO QHS, (Reported) Multivitamin (Daily Vitamin), 1 EACH PO DAILY, (Reported) Multivitamin W-Minerals/Lutein (Centrum Silver Tablet), 1 EACH PO DAILY, ( Reported) Tramadol Hcl* (Ultram*), 50 MG PO Q6H, (Reported) Trimethoprim/Sulfamethoxazole (Bactrim Ds Tablet), 1 EA PO BID, (Reported) Vancomycin Hcl/D5w (Vancomycin-D5w 1 G/250 Ml), 750 GM IVPB Q24H, (Reported) Zolpidem Tartrate* (Ambien*), 5 MG PO HS, (Reported) [Prostat 101], 30 ML PO DAILY, (Reported) Scheduled PRN Acetaminophen* (Tylenol*), 650 MG PO Q4H PRN, (Reported) Al Hydroxide/Mg Hydroxide (Mylanta), 30 ML PO ACHS PRN, (Reported) Albuterol Sulfate* (Albuterol Sulfate Hhn*), 2.5 MG HHN Q4H PRN, (Reported) Bisacodyl (Dulcolax), 10 MG RC DAILY PRN, (Reported) Bisacodyl* (Dulcolax*), 10 MG PO DAILY PRN, (Reported) Diphenhydramine HCl (Diphenhydramine HCl), 50 MG ORAL Q6H PRN for Itching, ( Reported) Hydrocodone Bit/Acetaminophen 10-325* (Lyle 10-325*), 1 TAB ORAL Q4H PRN for For Pain, (Reported) Hydrocortisone/Aloe Vera 1%* (Hydrocortisone-Aloe 1% Cream*), 1 APPLIC TOPIC Q6H PRN for Itching, (Reported) Hydromorphone HCl (Dilaudid), 2 MG PO Q4H PRN, (Reported) Ipratropium [place] (Atrovent Inh Soln), 2.5 ML HHN Q4HR PRN, (Reported) Loperamide Hcl (Imodium A-D), 2 MG PO Q4 PRN, (Reported) Lorazepam* (Ativan*), 1 MG PO Q6HR PRN, (Reported) Lorazepam* (Ativan*), 1 MG PO Q6 PRN, (Reported) Magnesium Hydroxide (Milk of Magnesia), 30 ML PO DAILY PRN, (Reported) Morphine Sulfate/Pf (Morphine 4 Mg/Ml Carpuject), 4 MG IVP Q4HR PRN for For Pain , (Reported) Ondansetron Odt* (Zofran Odt*), 4 MG PO Q4HR PRN, (Reported) Polyethylene Glycol 3350* (Miralax*), 17 GM ORAL DAILY PRN for Constipation, ( Reported) Zolpidem Tartrate* (Ambien*), 5 MG ORAL BEDTIME PRN for Insomnia, (Reported) [Albuterol/Atrovent], 1 UNIT INH Q4 PRN, (Reported) [Immodium], 2 MG PO Q4HR PRN, (Reported) [Milk Of Magnesia], 30 ML PO DAILY PRN, (Reported) Miscellaneous Medications Fa/Mv,Ca,Iron,Min/Lycopene/Lut (Centrum Tablet), 1 EACH PO, (Reported) Magnesium Hydroxide (Milk Of Magnesia), 400 MG PO, (Reported) Patient History History Provided By: Patient, Medical Record, PMD Healthcare decision maker Resuscitation status Full Code Advanced Directive on File No Past Medical/Surgical History Past Medical/Surgical History: (1) Hyponatremia (2) Cellulitis and abscess of buttock (3) Chronic osteomyelitis with draining sinus (4) Pain (5) Decubitus ulcer, hip, left, unstageable (6) Functional paraparesis (7) Dementia (8) UTI (urinary tract infection) (9) Cellulitis of left hip (10) Anemia (11) Hip fracture (12) Hyperlipidemia (13) HTN (hypertension) (14) Malnutrition (15) Sepsis (16) Left hip pain Review of Systems All Other Systems: negative except mentioned in HPI Physical Exam General Appearance: no apparent distress Lines, tubes and drains: peripheral HEENT: normocephalic, mucous membranes moist Neck: normal inspection Respiratory/Chest: normal breath sounds, no respiratory distress, no accessory muscle use Abdomen: normal bowel sounds, non tender, soft, no organomegaly, no mass Extremities: other - left hip ulcer with serous drainage Skin Exam: warm/dry Neurologic: alert, responsive Last 24 Hour Vital Signs Date Time Temp Pulse Resp B/P (MAP) Pulse Ox O2 Delivery O2 Flow Rate FiO2 07/12/18 12:31 78 18 Room Air 21 07/12/18 09:07 Room Air 07/12/18 08:37 114/55 07/12/18 08:00 97.6 61 18 116/57 (76) 98 07/12/18 04:02 97.4 58 18 114/55 (74) 97 07/12/18 00:00 97.9 59 18 133/63 (86) 94 07/11/18 22:49 Room Air 07/11/18 20:03 71 18 Room Air 21 07/11/18 20:00 97.5 57 19 110/50 (70) 94 07/11/18 17:41 75 132/73 07/11/18 15:40 98.1 75 20 123/72 (89) 95 Intake and Output 07/11/18 07/12/18 19:00 07:00 Intake Total 900 ml Balance 900 ml Intake Oral 900 ml # Voids 1 1 Laboratory Tests Test 07/12/18 07:00 White Blood Count 6.9 K/UL (4.8-10.8) Red Blood Count 4.74 M/UL (4.20-5.40) Hemoglobin 14.3 G/DL (12.0-16.0) Hematocrit 42.0 % (37.0-47.0) Mean Corpuscular Volume 89 FL (80-99) Mean Corpuscular Hemoglobin 30.2 PG (27.0-31.0) Mean Corpuscular Hemoglobin Concent 34.1 G/DL (32.0-36.0) Red Cell Distribution Width 10.8 % (11.6-14.8) L Platelet Count 380 K/UL (150-450) Mean Platelet Volume 6.0 FL (6.5-10.1) L Neutrophils (%) (Auto) 39.3 % (45.0-75.0) L Lymphocytes (%) (Auto) 42.8 % (20.0-45.0) Monocytes (%) (Auto) 11.5 % (1.0-10.0) H Eosinophils (%) (Auto) 5.0 % (0.0-3.0) H Basophils (%) (Auto) 1.4 % (0.0-2.0) Sodium Level 133 MMOL/L (136-145) L Potassium Level 4.1 MMOL/L (3.5-5.1) Chloride Level 99 MMOL/L (98-107) Carbon Dioxide Level 25 MMOL/L (21-32) Anion Gap 9 mmol/L (5-15) Blood Urea Nitrogen 9 mg/dL (7-18) Creatinine 0.6 MG/DL (0.55-1.30) Estimat Glomerular Filtration Rate mL/min (>60) Glucose Level 101 MG/DL (74-106) Calcium Level 8.9 MG/DL (8.5-10.1) Height (Feet): 5 Height (Inches): 3.00 Weight (Pounds): 140 Medications Current Medications Medications (Trade) Dose Ordered Sig/Andi Route PRN Reason Start Time Stop Time Status Last Admin Dose Admin Acetaminophen (Tylenol) 650 mg Q4H PRN ORAL Mild Pain/Temp > 100.5 07/10/18 20:16 08/09/18 20:15 07/11/18 23:14 Al Hydroxide/Mg Hydroxide (Mylanta II) 30 ml Q6H PRN ORAL dyspepsia 07/10/18 14:45 08/09/18 14:44 Albuterol/ Ipratropium (Albuterol/ Ipratropium) 3 ml Q4H PRN HHN Shortness of Breath 07/11/18 12:36 07/16/18 12:35 Aspirin (Ecotrin) 81 mg DAILY ORAL 07/12/18 09:00 08/11/18 08:59 07/12/18 08:37 Atorvastatin Calcium (Lipitor) 10 mg BEDTIME ORAL 07/11/18 21:00 08/10/18 20:59 07/11/18 20:43 Carvedilol (Coreg) 3.125 mg BID ORAL 07/11/18 18:00 08/10/18 17:59 07/11/18 17:41 Dextrose (Dextrose 50%) 25 ml Q30M PRN IV Hypoglycemia 07/10/18 15:00 08/09/18 14:48 Dextrose (Dextrose 50%) 50 ml Q30M PRN IV hypoglycemia 07/10/18 15:00 08/09/18 14:59 Docusate Sodium (Colace) 100 mg BID ORAL 07/11/18 18:00 08/10/18 17:59 07/12/18 08:39 Donepezil HCl (Aricept) 5 mg DAILY ORAL 07/12/18 09:00 08/11/18 08:59 07/12/18 08:37 Gabapentin (Neurontin) 200 mg THREE TIMES A DAY ORAL 07/11/18 13:00 08/10/18 12:59 07/12/18 13:30 Levofloxacin (Levaquin) 750 mg QOD ORAL 07/12/18 09:00 07/19/18 08:59 07/12/18 08:39 Lisinopril (Zestril) 10 mg DAILY ORAL 07/12/18 09:00 08/11/18 08:59 07/12/18 08:37 Lorazepam (Ativan 2mg/ml 1ml) 0.5 mg Q4H PRN IV For Anxiety 07/10/18 14:45 07/17/18 14:44 Memantine (Namenda) 10 mg BID ORAL 07/12/18 09:00 08/11/18 08:59 07/12/18 08:39 Morphine Sulfate (Morphine Sulfate) 1 mg Q4H PRN IVP For Pain 07/10/18 14:45 07/17/18 14:44 Nystatin (Nystop Powder) 1 applic THREE TIMES A DAY TOPIC 07/11/18 09:00 08/10/18 08:59 07/12/18 13:30 Ondansetron HCl (Zofran) 4 mg Q6H PRN IVP Nausea & Vomiting 07/10/18 14:45 08/09/18 14:44 Polyethylene Glycol (Miralax) 17 gm HSPRN PRN ORAL Constipation 07/10/18 14:45 08/09/18 14:44 Zolpidem Tartrate (Ambien) 5 mg HSPRN PRN ORAL Insomnia 07/10/18 14:45 07/17/18 14:44 07/11/18 23:14 Assessment/Plan Problem List: (1) Decubitus ulcer, hip, left, unstageable Assessment & Plan: left hip open wound full thickness 1cm opening with serous drainage. 1cm x 1cm with unknown depth. tender on evaluation. periwound erythema. no purulent drainage. mild foul odor. etiology unknown but could be related to pressure ulceration from foreign object. tender on exam. dressings saturated with serous drainage. -clean site with NS, apply therahoney, apply alginate or gauze, cover with foam dressings daily and prn -turn q2h -air mattress -heel protectors -okay for diet thank you. will follow with recs ICD Codes: L89.220 - Pressure ulcer of left hip, unstageable SNOMED: [id number] Status: stable LakshmiGama Jul 12, 2018 14:25
--- NOTE | 2018-07-12 15:00 | Pulmonology Progress Note ---
Assessment/Plan Problems: (1) Cellulitis and abscess of buttock (2) Sepsis (3) Decubitus ulcer, hip, left, unstageable (4) Functional paraparesis (5) Dementia (6) HTN (hypertension) Assessment/Plan improving WBC lower continue abx wound care symptomatic treatment monitor BP dvt prophylaxis Subjective ROS Limited/Unobtainable: No Constitutional: Reports: no symptoms HEENT: Repors: no symptoms Respiratory: Reports: no symptoms Allergies: Coded Allergies: SULFA (SULFONAMIDE ANTIBIOTICS) (Verified Allergy, Unknown, 10/18/09) Objective Last 24 Hour Vital Signs Date Time Temp Pulse Resp B/P (MAP) Pulse Ox O2 Delivery O2 Flow Rate FiO2 07/12/18 12:31 78 18 Room Air 21 07/12/18 12:00 98.0 65 18 120/61 (80) 97 07/12/18 09:07 Room Air 07/12/18 08:37 114/55 07/12/18 08:00 97.6 61 18 116/57 (76) 98 07/12/18 04:02 97.4 58 18 114/55 (74) 97 07/12/18 00:00 97.9 59 18 133/63 (86) 94 07/11/18 22:49 Room Air 07/11/18 20:03 71 18 Room Air 21 07/11/18 20:00 97.5 57 19 110/50 (70) 94 07/11/18 17:41 75 132/73 07/11/18 15:40 98.1 75 20 123/72 (89) 95 Intake and Output 07/11/18 07/12/18 19:00 07:00 Intake Total 900 ml Balance 900 ml Intake Oral 900 ml # Voids 1 1 General Appearance: WD/WN HEENT: normocephalic, anicteric, PERRL Respiratory/Chest: lungs clear Breasts: no masses Cardiovascular: regular rhythm, no JVD Abdomen: no organomegaly Extremities: no cyanosis Microbiology Date/Time Source Procedure Growth Status 07/10/18 10:10 Blood Blood Culture - Preliminary Resulted 07/10/18 10:00 Blood Blood Culture - Preliminary NO GROWTH AFTER 24 HOURS Resulted 07/10/18 10:12 Urine,Clean Catch Urine Culture - Preliminary Gram Negative Bacillus 1 Resulted 07/10/18 10:25 Rectum - Final NO CARBAPENEM-RESISTANT ENTEROBACTERI... Complete 07/10/18 10:00 Hip Left Gram Stain - Final Resulted 07/10/18 10:00 Wound Culture - Preliminary Staphylococcus Aureus Resulted Laboratory Tests 07/12/18 07:00: White Blood Count 6.9, Red Blood Count 4.74, Hemoglobin 14.3, Hematocrit 42.0, Mean Corpuscular Volume 89, Mean Corpuscular Hemoglobin 30.2, Mean Corpuscular Hemoglobin Concent 34.1, Red Cell Distribution Width 10.8L, Platelet Count 380, Mean Platelet Volume 6.0L, Neutrophils (%) (Auto) 39.3L, Lymphocytes (%) (Auto) 42.8, Monocytes (%) (Auto) 11.5H, Eosinophils (%) (Auto) 5.0H, Basophils (%) ( Auto) 1.4, Sodium Level 133L, Potassium Level 4.1, Chloride Level 99, Carbon Dioxide Level 25, Anion Gap 9, Blood Urea Nitrogen 9, Creatinine 0.6, Estimat Glomerular Filtration Rate , Glucose Level 101, Calcium Level 8.9 Current Medications Medications (Trade) Dose Ordered Sig/Andi Route PRN Reason Start Time Stop Time Status Last Admin Dose Admin Acetaminophen (Tylenol) 650 mg Q4H PRN ORAL Mild Pain/Temp > 100.5 07/10/18 20:16 08/09/18 20:15 07/11/18 23:14 Al Hydroxide/Mg Hydroxide (Mylanta II) 30 ml Q6H PRN ORAL dyspepsia 07/10/18 14:45 08/09/18 14:44 Albuterol/ Ipratropium (Albuterol/ Ipratropium) 3 ml Q4H PRN HHN Shortness of Breath 07/11/18 12:36 07/16/18 12:35 Aspirin (Ecotrin) 81 mg DAILY ORAL 07/12/18 09:00 08/11/18 08:59 07/12/18 08:37 Atorvastatin Calcium (Lipitor) 10 mg BEDTIME ORAL 07/11/18 21:00 08/10/18 20:59 07/11/18 20:43 Carvedilol (Coreg) 3.125 mg BID ORAL 07/11/18 18:00 08/10/18 17:59 07/11/18 17:41 Dextrose (Dextrose 50%) 25 ml Q30M PRN IV Hypoglycemia 07/10/18 15:00 08/09/18 14:48 Dextrose (Dextrose 50%) 50 ml Q30M PRN IV hypoglycemia 07/10/18 15:00 08/09/18 14:59 Docusate Sodium (Colace) 100 mg BID ORAL 07/11/18 18:00 08/10/18 17:59 07/12/18 08:39 Donepezil HCl (Aricept) 5 mg DAILY ORAL 07/12/18 09:00 08/11/18 08:59 07/12/18 08:37 Gabapentin (Neurontin) 200 mg THREE TIMES A DAY ORAL 07/11/18 13:00 08/10/18 12:59 07/12/18 13:30 Levofloxacin (Levaquin) 750 mg QOD ORAL 07/12/18 09:00 07/19/18 08:59 07/12/18 08:39 Lisinopril (Zestril) 10 mg DAILY ORAL 07/12/18 09:00 08/11/18 08:59 07/12/18 08:37 Lorazepam (Ativan 2mg/ml 1ml) 0.5 mg Q4H PRN IV For Anxiety 07/10/18 14:45 07/17/18 14:44 Memantine (Namenda) 10 mg BID ORAL 07/12/18 09:00 08/11/18 08:59 07/12/18 08:39 Morphine Sulfate (Morphine Sulfate) 1 mg Q4H PRN IVP For Pain 07/10/18 14:45 07/17/18 14:44 Nystatin (Nystop Powder) 1 applic THREE TIMES A DAY TOPIC 07/11/18 09:00 08/10/18 08:59 07/12/18 13:30 Ondansetron HCl (Zofran) 4 mg Q6H PRN IVP Nausea & Vomiting 07/10/18 14:45 08/09/18 14:44 Polyethylene Glycol (Miralax) 17 gm HSPRN PRN ORAL Constipation 07/10/18 14:45 08/09/18 14:44 Zolpidem Tartrate (Ambien) 5 mg HSPRN PRN ORAL Insomnia 07/10/18 14:45 07/17/18 14:44 07/11/18 23:14 Sha Clark MD Jul 12, 2018 15:00
--- NOTE | 2018-07-12 15:22 | Consultation ---
History of Present Illness General Date patient seen: Jul 12, 2018 Chief Complaint: General Complaint Referring physician: dr Anderson Reason for Consultation: wound Present Illness HPI 83 y/o F with hx of chronic OM, Dementia, HTN, Afib on AC, HLD, functional quadriplegia, R femoral neck pathological frature, SNF resident presents to ED on 07/10 L hip wound drainage, pain and concern for infection. OF note, patient has hx of L hip traum with s/p surgical repair with a non healing wound. No f/c, cough, dysuria Of note, patient patient admitted here on 06/2016 for treatment of Chrnoic L hip OM. At that time patient had Strep Alpha hemolytic bacteremia; was treated with 6 weeks of IV Vancomycin and Ceftriaxone. She had hx of MRSA growth from prior wound cx. Plan at that time was to continued lifelong suppressive abx after 6 weeks of IV abx. Im not clear if this was done. Regarding L hip joint, she has had multipe surgiers in the past and has a chronc sinus trach Allergies: Coded Allergies: SULFA (SULFONAMIDE ANTIBIOTICS) (Verified Allergy, Unknown, 10/18/09) Medication History Scheduled Ascorbic Acid (Vitamin C), 500 MG PO DAILY, (Reported) Aspirin* (Aspir 81*), 81 MG ORAL DAILY, (Reported) Atorvastatin Calcium* (Lipitor*), 10 MG ORAL BEDTIME, (Reported) Atorvastatin Calcium* (Lipitor*), 10 MG ORAL BEDTIME, (Reported) Calcium Carbonate/Vitamin D3 (Calcium + Vitamin D Tablet), 1 EACH PO DAILY, ( Reported) Carvedilol* (Carvedilol*), 3.125 MG ORAL BID, (Reported) Ceftriaxone Sod (Rocephin), 2 GM IVPB DAILY, (Reported) Dabigatran Etexilate Mesylate* (Pradaxa*), 150 MG ORAL BID, (Reported) Docusate Sodium* (Dss*), 100 MG PO BID, (Reported) Donepezil Hcl* (Aricept*), 5 MG ORAL DAILY, (Reported) Doxycycline Hyclate* (Vibramycin*), 100 MG ORAL BID, (Reported) Ferrous Sulfate* (Ferrous Sulfate*), 325 MG PO TID, (Reported) Gabapentin (Neurontin), 300 MG ORAL THREE TIMES A DAY, (Reported) Gabapentin* (Neurontin*), 200 MG ORAL THREE TIMES A DAY, (Reported) Gabapentin* (Neurontin*), 300 MG ORAL THREE TIMES A DAY, (Reported) Heparin Sodium,Porcine/Pf (Heparin Sod 5,000 Unit/ 0.5 Ml), 5,000 UNIT SUBQ Q12HR, (Reported) Hydrocodone Bit/Acetaminophen 5-500 (Vicodin 5-500), 1 EACH PO PRN, (Reported) Lidocaine (Lidoderm), 1 PATCH TOPIC DAILY, (Reported) Lisinopril (Lisinopril*), 10 MG ORAL DAILY, (Reported) Megestrol Acetate (Megestrol Acetate), 400 MG PO BID, (Reported) Metoprolol Succinate* (Metoprolol Succinate*), 25 MG ORAL DAILY, (Reported) Mirtazapine* (Remeron*), 7.5 MG PO QHS, (Reported) Multivitamin (Daily Vitamin), 1 EACH PO DAILY, (Reported) Multivitamin W-Minerals/Lutein (Centrum Silver Tablet), 1 EACH PO DAILY, ( Reported) Tramadol Hcl* (Ultram*), 50 MG PO Q6H, (Reported) Trimethoprim/Sulfamethoxazole (Bactrim Ds Tablet), 1 EA PO BID, (Reported) Vancomycin Hcl/D5w (Vancomycin-D5w 1 G/250 Ml), 750 GM IVPB Q24H, (Reported) Zolpidem Tartrate* (Ambien*), 5 MG PO HS, (Reported) [Prostat 101], 30 ML PO DAILY, (Reported) Scheduled PRN Acetaminophen* (Tylenol*), 650 MG PO Q4H PRN, (Reported) Al Hydroxide/Mg Hydroxide (Mylanta), 30 ML PO ACHS PRN, (Reported) Albuterol Sulfate* (Albuterol Sulfate Hhn*), 2.5 MG HHN Q4H PRN, (Reported) Bisacodyl (Dulcolax), 10 MG RC DAILY PRN, (Reported) Bisacodyl* (Dulcolax*), 10 MG PO DAILY PRN, (Reported) Diphenhydramine HCl (Diphenhydramine HCl), 50 MG ORAL Q6H PRN for Itching, ( Reported) Hydrocodone Bit/Acetaminophen 10-325* ([place] 10-325*), 1 TAB ORAL Q4H PRN for For Pain, (Reported) Hydrocortisone/Aloe Vera 1%* (Hydrocortisone-Aloe 1% Cream*), 1 APPLIC TOPIC Q6H PRN for Itching, (Reported) Hydromorphone HCl (Dilaudid), 2 MG PO Q4H PRN, (Reported) Ipratropium [place] (Atrovent Inh Soln), 2.5 ML HHN Q4HR PRN, (Reported) Loperamide Hcl (Imodium A-D), 2 MG PO Q4 PRN, (Reported) Lorazepam* (Ativan*), 1 MG PO Q6HR PRN, (Reported) Lorazepam* (Ativan*), 1 MG PO Q6 PRN, (Reported) Magnesium Hydroxide (Milk of Magnesia), 30 ML PO DAILY PRN, (Reported) Morphine Sulfate/Pf (Morphine 4 Mg/Ml Carpuject), 4 MG IVP Q4HR PRN for For Pain , (Reported) Ondansetron Odt* (Zofran Odt*), 4 MG PO Q4HR PRN, (Reported) Polyethylene Glycol 3350* (Miralax*), 17 GM ORAL DAILY PRN for Constipation, ( Reported) Zolpidem Tartrate* (Ambien*), 5 MG ORAL BEDTIME PRN for Insomnia, (Reported) [Albuterol/Atrovent], 1 UNIT INH Q4 PRN, (Reported) [Immodium], 2 MG PO Q4HR PRN, (Reported) [Milk Of Magnesia], 30 ML PO DAILY PRN, (Reported) Miscellaneous Medications Fa/Mv,Ca,Iron,Min/Lycopene/Lut (Centrum Tablet), 1 EACH PO, (Reported) Magnesium Hydroxide (Milk Of Magnesia), 400 MG PO, (Reported) Medications Narrative Patient History Healthcare decision maker Resuscitation status Full Code Advanced Directive on File No Patient History Narrative Pmhx: as above Shx: No smoking. No alcohol. No intravenous drug abuse. FHx: non contributory Review of Systems All Other Systems: negative except mentioned in HPI Physical Exam Physical Exam Narrative General Appearance: no apparent distress, alert - able to answer only simple questions , confused Lines, tubes and drains: peripheral HEENT: normocephalic, atraumatic, anicteric, mucous membranes moist Neck: non-tender, supple Respiratory/Chest: lungs clear - with moderate air exchange , no respiratory distress, no accessory muscle use Cardiovascular/Chest: normal peripheral pulses, normal rate Abdomen: non tender, soft Skin Exam: warm/dry Neurologic: no motor/sensory deficits, abnormal gait, alert Musculoskeletal: atrophy - BLE Last 24 Hour Vital Signs Date Time Temp Pulse Resp B/P (MAP) Pulse Ox O2 Delivery O2 Flow Rate FiO2 07/12/18 12:31 78 18 Room Air 21 07/12/18 12:00 98.0 65 18 120/61 (80) 97 07/12/18 09:07 Room Air 07/12/18 08:37 114/55 07/12/18 08:00 97.6 61 18 116/57 (76) 98 07/12/18 04:02 97.4 58 18 114/55 (74) 97 07/12/18 00:00 97.9 59 18 133/63 (86) 94 07/11/18 22:49 Room Air 07/11/18 20:03 71 18 Room Air 21 07/11/18 20:00 97.5 57 19 110/50 (70) 94 07/11/18 17:41 75 132/73 07/11/18 15:40 98.1 75 20 123/72 (89) 95 Intake and Output 07/11/18 07/12/18 19:00 07:00 Intake Total 900 ml Balance 900 ml Intake Oral 900 ml # Voids 1 1 Laboratory Tests Test 07/12/18 07:00 White Blood Count 6.9 K/UL (4.8-10.8) Red Blood Count 4.74 M/UL (4.20-5.40) Hemoglobin 14.3 G/DL (12.0-16.0) Hematocrit 42.0 % (37.0-47.0) Mean Corpuscular Volume 89 FL (80-99) Mean Corpuscular Hemoglobin 30.2 PG (27.0-31.0) Mean Corpuscular Hemoglobin Concent 34.1 G/DL (32.0-36.0) Red Cell Distribution Width 10.8 % (11.6-14.8) L Platelet Count 380 K/UL (150-450) Mean Platelet Volume 6.0 FL (6.5-10.1) L Neutrophils (%) (Auto) 39.3 % (45.0-75.0) L Lymphocytes (%) (Auto) 42.8 % (20.0-45.0) Monocytes (%) (Auto) 11.5 % (1.0-10.0) H Eosinophils (%) (Auto) 5.0 % (0.0-3.0) H Basophils (%) (Auto) 1.4 % (0.0-2.0) Sodium Level 133 MMOL/L (136-145) L Potassium Level 4.1 MMOL/L (3.5-5.1) Chloride Level 99 MMOL/L (98-107) Carbon Dioxide Level 25 MMOL/L (21-32) Anion Gap 9 mmol/L (5-15) Blood Urea Nitrogen 9 mg/dL (7-18) Creatinine 0.6 MG/DL (0.55-1.30) Estimat Glomerular Filtration Rate mL/min (>60) Glucose Level 101 MG/DL (74-106) Calcium Level 8.9 MG/DL (8.5-10.1) Height (Feet): 5 Height (Inches): 3.00 Weight (Pounds): 140 Medications Current Medications Medications (Trade) Dose Ordered Sig/Andi Route PRN Reason Start Time Stop Time Status Last Admin Dose Admin Acetaminophen (Tylenol) 650 mg Q4H PRN ORAL Mild Pain/Temp > 100.5 07/10/18 20:16 08/09/18 20:15 07/11/18 23:14 Al Hydroxide/Mg Hydroxide (Mylanta II) 30 ml Q6H PRN ORAL dyspepsia 07/10/18 14:45 08/09/18 14:44 Albuterol/ Ipratropium (Albuterol/ Ipratropium) 3 ml Q4H PRN HHN Shortness of Breath 07/11/18 12:36 07/16/18 12:35 Aspirin (Ecotrin) 81 mg DAILY ORAL 07/12/18 09:00 08/11/18 08:59 07/12/18 08:37 Atorvastatin Calcium (Lipitor) 10 mg BEDTIME ORAL 07/11/18 21:00 08/10/18 20:59 07/11/18 20:43 Carvedilol (Coreg) 3.125 mg BID ORAL 07/11/18 18:00 08/10/18 17:59 07/11/18 17:41 Dextrose (Dextrose 50%) 25 ml Q30M PRN IV Hypoglycemia 07/10/18 15:00 08/09/18 14:48 Dextrose (Dextrose 50%) 50 ml Q30M PRN IV hypoglycemia 07/10/18 15:00 08/09/18 14:59 Docusate Sodium (Colace) 100 mg BID ORAL 07/11/18 18:00 08/10/18 17:59 07/12/18 08:39 Donepezil HCl (Aricept) 5 mg DAILY ORAL 07/12/18 09:00 08/11/18 08:59 07/12/18 08:37 Gabapentin (Neurontin) 200 mg THREE TIMES A DAY ORAL 07/11/18 13:00 08/10/18 12:59 07/12/18 13:30 Levofloxacin (Levaquin) 750 mg QOD ORAL 07/12/18 09:00 07/19/18 08:59 07/12/18 08:39 Lisinopril (Zestril) 10 mg DAILY ORAL 07/12/18 09:00 08/11/18 08:59 07/12/18 08:37 Lorazepam (Ativan 2mg/ml 1ml) 0.5 mg Q4H PRN IV For Anxiety 07/10/18 14:45 07/17/18 14:44 Memantine (Namenda) 10 mg BID ORAL 07/12/18 09:00 08/11/18 08:59 07/12/18 08:39 Morphine Sulfate (Morphine Sulfate) 1 mg Q4H PRN IVP For Pain 07/10/18 14:45 07/17/18 14:44 Nystatin (Nystop Powder) 1 applic THREE TIMES A DAY TOPIC 07/11/18 09:00 08/10/18 08:59 07/12/18 13:30 Ondansetron HCl (Zofran) 4 mg Q6H PRN IVP Nausea & Vomiting 07/10/18 14:45 08/09/18 14:44 Polyethylene Glycol (Miralax) 17 gm HSPRN PRN ORAL Constipation 07/10/18 14:45 08/09/18 14:44 Zolpidem Tartrate (Ambien) 5 mg HSPRN PRN ORAL Insomnia 07/10/18 14:45 07/17/18 14:44 07/11/18 23:14 Assessment/Plan Assessment/Plan Abx: IV Vanco x1 07/10 Zosyn x1 07/10 Levaquin 07/12- Assessment: L hip chronic wound /chronic OM w/ sinus tract- now with increased drainage, likely acute infection -wound cx S. aureus -hx of MRSA in the past -s/p 6 weeks IV Vancomycin and CTX 06/2016 -CT abd/p: Vertical lucency bilateral in sacrum , may be insufficiency fractures. Osteopenia. T9, T12, L1 and L3 mild compression deformities - age- indeterminate. Colonic diverticulosis without acute diverticulitis. 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 5.3 cm fecal distended rectum. Moderate colonic stool load/constipation. Small air in the urinary bladder may be from recent catheterization, correlate for gas producing cystitis. Thickening of the urinary bladder. Probable UTI -u/a wbc TNTC; ucx >100K GNR Afebrile Leukocytosis, SP -CXR: hypoventilatory lungs with bibasilar lung atelectasis and mild interstitial prominence. Dementia HTN Afib on AC HLD functional quadriplegia R femoral neck pathological frature SNF resident Plan: -Continue empiric Levaquin and add PO Doxycycline for MRSA coverage pending cultures -f/u Xray hip -MRI pelvis -f/u cx -Monitor CBC/CMP, temperatures -wound care -Sx f/u Thank you for this consultation. Will continue to follow along with you. Discussed with Heidi Hunter M.D. Jul 12, 2018 15:22
[2018-07-12] MEDS ORDERED: Gadavist 7.5mMol/7.5ml vial IV PRN (15:30)
[2018-07-12 16:00] VITALS: BP 126/64
[2018-07-12 20:00] VITALS: BP 143/65
[2018-07-12] MEDS: Zolpidem 5mg tab ORAL PRN (23:27)
[2018-07-13] VITALS: BP 131/58
[2018-07-13 04:00] VITALS: BP 125/60
[2018-07-13 06:46] LABS: BASOPHILS % (AUTO) 1.6 % (0.0-2.0); EOSINOPHILS % (AUTO) 6.5 % (0.0-3.0); HEMATOCRIT 37.6 % (37.0-47.0); LYMPHOCYTES % (AUTO) 37.2 % (20.0-45.0); MEAN CORPUSCULAR VOLUME 89 FL (80-99); MONOCYTES % (AUTO) 12.5 % (1.0-10.0); NEUTROPHILS % (AUTO) 42.2 % (45.0-75.0); PLATELET COUNT 423 K/UL (150-450); RED BLOOD COUNT 4.22 M/UL (4.20-5.40); RED CELL DISTRIBUTION WIDTH 11.2 % (11.6-14.8); WHITE BLOOD COUNT 8.6 K/UL (4.8-10.8)
[2018-07-13 06:48] LABS: ANION GAP 8 mmol/L (5-15); BLOOD UREA NITROGEN 9 mg/dL (7-18); CALCIUM 8.5 MG/DL (8.5-10.1); CARBON DIOXIDE 27 MMOL/L (21-32); CHLORIDE 97 MMOL/L (98-107); CREATININE 0.6 MG/DL (0.55-1.30); POTASSIUM 3.7 MMOL/L (3.5-5.1); SODIUM 132 MMOL/L (136-145)
[2018-07-13 08:00] VITALS: BP 138/68
[2018-07-13] MEDS: Docusate 100mg cap ORAL SCH ×2 (09:44→18:00)
[2018-07-13] MEDS: Lisinopril 10mg tab ORAL SCH (09:50)
[2018-07-13] MEDS: Aspirin EC 81mg tab ORAL SCH (09:50)
[2018-07-13] MEDS: Memantine 10mg tab ORAL SCH ×2 (09:51→18:00)
[2018-07-13] MEDS: Donepezil 5mg Tab ORAL SCH (09:52)
[2018-07-13] MEDS: Nystatin Powder 100,000 units/gm 15gm TOPIC SCH ×3 (09:57→18:00)
[2018-07-13 12:00] VITALS: BP 125/61
--- NOTE | 2018-07-13 12:32 | General Progress Note ---
Assessment/Plan Problem List: (1) Malnutrition ICD Codes: E46 - Unspecified protein-calorie malnutrition SNOMED: 00026725 (2) Sepsis ICD Codes: A41.9 - Sepsis, unspecified organism SNOMED: 81110857 (3) Left hip pain ICD Codes: M25.552 - Pain in left hip SNOMED: 79951965 (4) Decubitus ulcer, hip, left, unstageable ICD Codes: L89.220 - Pressure ulcer of left hip, unstageable SNOMED: 716635415 (5) HTN (hypertension) ICD Codes: I10 - Essential (primary) hypertension SNOMED: 50762914 Status: stable, progressing Assessment/Plan ot pt diet wound care abx sx eval cbc bmp am dc if clear Subjective Constitutional: Reports: weakness Allergies: Coded Allergies: SULFA (SULFONAMIDE ANTIBIOTICS) (Verified Allergy, Unknown, 10/18/09) All Systems: reviewed and negative except above Subjective sl anxious in bed eating Objective Last 24 Hour Vital Signs Date Time Temp Pulse Resp B/P (MAP) Pulse Ox O2 Delivery O2 Flow Rate FiO2 07/13/18 09:50 140/62 07/13/18 09:49 64 140/62 07/13/18 09:00 Room Air 07/13/18 08:00 97.1 56 18 138/68 (91) 95 07/13/18 04:00 97.3 55 18 125/60 (81) 97 07/13/18 00:00 97.1 59 20 131/58 (82) 95 07/12/18 21:46 61 18 Room Air 21 07/12/18 21:00 Room Air 07/12/18 20:00 97.2 57 20 143/65 (91) 98 07/12/18 17:41 68 126/64 07/12/18 16:00 97.9 68 18 126/64 (84) 97 Intake and Output 07/12/18 07/13/18 19:00 07:00 Intake Total 480 ml 460 ml Balance 480 ml 460 ml Intake Oral 480 ml 460 ml # Voids 3 2 Laboratory Tests 07/13/18 05:20: White Blood Count 8.6, Red Blood Count 4.22, Hemoglobin 13.0, Hematocrit 37.6, Mean Corpuscular Volume 89, Mean Corpuscular Hemoglobin 30.7, Mean Corpuscular Hemoglobin Concent 34.5, Red Cell Distribution Width 11.2L, Platelet Count 423, Mean Platelet Volume 6.1L, Neutrophils (%) (Auto) 42.2L, Lymphocytes (%) (Auto) 37.2, Monocytes (%) (Auto) 12.5H, Eosinophils (%) (Auto) 6.5H, Basophils (%) ( Auto) 1.6, Sodium Level 132L, Potassium Level 3.7, Chloride Level 97L, Carbon Dioxide Level 27, Anion Gap 8, Blood Urea Nitrogen 9, Creatinine 0.6, Estimat Glomerular Filtration Rate , Glucose Level 89, Calcium Level 8.5 Height (Feet): 5 Height (Inches): 3.00 Weight (Pounds): 140 General Appearance: lethargic EENT: normal ENT inspection Neck: normal alignment Cardiovascular: normal peripheral pulses, normal rate, regular rhythm Respiratory/Chest: chest wall non-tender, lungs clear, normal breath sounds Abdomen: normal bowel sounds, non tender, soft Extremities: normal inspection Edema: no edema noted Arm (L), no edema noted Arm (R), no edema noted Leg (L), no edema noted Leg (R), no edema noted Pedal (L), no edema noted Pedal (R), no edema noted Generalized Neurologic: responsive, motor weakness Skin: normal pigmentation, warm/dry Objective hip knee contracture 90 degrees, wound dressing c&Dallin Nayak DO Jul 13, 2018 12:32
--- NOTE | 2018-07-13 13:52 | Pulmonology Progress Note ---
Assessment/Plan Problems: (1) Cellulitis and abscess of buttock (2) Sepsis (3) Decubitus ulcer, hip, left, unstageable (4) Functional paraparesis (5) Dementia (6) HTN (hypertension) Assessment/Plan improving WBC lower continue abx wound care symptomatic treatment monitor BP dvt prophylaxis Subjective Allergies: Coded Allergies: SULFA (SULFONAMIDE ANTIBIOTICS) (Verified Allergy, Unknown, 10/18/09) Objective Last 24 Hour Vital Signs Date Time Temp Pulse Resp B/P (MAP) Pulse Ox O2 Delivery O2 Flow Rate FiO2 07/13/18 09:50 140/62 07/13/18 09:49 64 140/62 07/13/18 09:00 Room Air 07/13/18 08:00 97.1 56 18 138/68 (91) 95 07/13/18 04:00 97.3 55 18 125/60 (81) 97 07/13/18 00:00 97.1 59 20 131/58 (82) 95 07/12/18 21:46 61 18 Room Air 21 07/12/18 21:00 Room Air 07/12/18 20:00 97.2 57 20 143/65 (91) 98 07/12/18 17:41 68 126/64 07/12/18 16:00 97.9 68 18 126/64 (84) 97 Intake and Output 07/12/18 07/13/18 19:00 07:00 Intake Total 480 ml 460 ml Balance 480 ml 460 ml Intake Oral 480 ml 460 ml # Voids 3 2 Laboratory Tests 07/13/18 05:20: White Blood Count 8.6, Red Blood Count 4.22, Hemoglobin 13.0, Hematocrit 37.6, Mean Corpuscular Volume 89, Mean Corpuscular Hemoglobin 30.7, Mean Corpuscular Hemoglobin Concent 34.5, Red Cell Distribution Width 11.2L, Platelet Count 423, Mean Platelet Volume 6.1L, Neutrophils (%) (Auto) 42.2L, Lymphocytes (%) (Auto) 37.2, Monocytes (%) (Auto) 12.5H, Eosinophils (%) (Auto) 6.5H, Basophils (%) ( Auto) 1.6, Sodium Level 132L, Potassium Level 3.7, Chloride Level 97L, Carbon Dioxide Level 27, Anion Gap 8, Blood Urea Nitrogen 9, Creatinine 0.6, Estimat Glomerular Filtration Rate , Glucose Level 89, Calcium Level 8.5 Sha Clark MD Jul 13, 2018 13:52
[2018-07-13 16:00] VITALS: BP 126/64
[2018-07-13] MEDS ORDERED: NAMENDA10 MG ORAL (18:52)
[2018-07-13] MEDS ORDERED: BABY POWDER1 APPLIC TOPIC (18:54)
[2018-07-13 20:00] VITALS: BP 140/80
[2018-07-13] MEDS ORDERED: Zolpidem 5mg tab ORAL PRN (21:50)
--- NOTE | 2018-07-14 01:30 | Progress Note ---
DATE: 07/13/2018 SUBJECTIVE: This is an 83-year-old female patient with cellulitis, but she still has high levels of anxiety, worsened by the stress of her medical illness. That is why her attending has requested daily psychiatric consultation. MENTAL STATUS EXAMINATION: This is an 83-year-old female. Appearance is disheveled. Attitude, irritable and agitated. Affect, guarded and restricted. Intellect poor. Mood depressed and anxious. Motor activity, psychomotor agitation. Intellect poor. Attention span is poor. Orientation x2. Speech is pressured. Thought process, disorganized and illogical. Thought content, no auditory hallucinations or paranoid delusions. Insight and judgment is poor. DIAGNOSIS: Major depressive disorder, rule out generalized anxiety disorder. PLAN: Plan for this patient is to treat her with regimen consisting of Ativan 0.5 mg IV q.4 h. p.r.n. anxiety and agitation. mg three times a day. Provided with 20 minutes of supportive psychotherapy. I encouraged her to interact appropriately with staff and other patients. Chart reviewed and discussed with staff. A 20 minutes of cognitive behavior therapy was provided to identify automatic negative thoughts and help her convert the negative thoughts to more positive thoughts. Jovany Downey M.D. DR: NABILA JOB#: [id number] CC:
--- NOTE | 2018-07-14 02:45 | Consultation ---
DATE OF CONSULTATION: 07/12/2018 NOTE: VERY POOR AUDIO PSYCHOTHERAPY CONSULTATION PROGRESS NOTE CONSULTING PHYSICIAN: Ev Park PsyD. TREATING ATTENDING PHYSICIAN: Dallin Anderson D.O. HISTORY OF PRESENT ILLNESS: The patient is an 83-year-old female patient from [facility]. The patient presented to the hospital for cellulitis of her left hip. Since her admission, the patient has been agitated, irritable, and constantly asking to be returned back to her nursing facility, poor insight into the process of hospitalization. She states that she feels tired of being in the hospital setting. The patient has been told several times by the nursing staff that . The patient is forgetful and disorganized at this time. She has no logical plan for her self-care, requiring hospitalization for stabilization of her symptoms. The patient denies suicidal or homicidal thoughts of ideation. Denies any auditory or visual hallucinations. The patient is able to communicate properly; however, she has been agitated and . PAST MEDICAL HISTORY: The patient presents with history of left hip trauma, status post surgery and drainage, cellulitis, and weakness. ALLERGIES: The patient is allergic to sulfa. SOCIAL HISTORY: The patient denies history of alcohol use, illicit substance use, or smoking cigarettes. PSYCHIATRIC HISTORY: The patient has a history of . SOCIAL HISTORY: The patient is an 83-year-old female. The patient from [facility]. Financially sustained through [employer]. MENTAL STATUS EXAMINATION: The patient is alert and oriented to person, place, and time. Mood is anxious. Affect is labile. Thought process, disorganized. Thought content, negative and catastrophic. She has poor attention and concentration. Poor insight, judgment, and impulse control. Provided the patient with reality orientation cognitive function confused and disoriented. Oriented to person, place, time and situation. The patient was provided with supportive psychotherapy. anxiety, agitation, lability and depression. Provided the patient with cognitive behavioral therapy. adjust the patient's mood with coping skills. negative catastrophic thoughts positive communication with behavioral management. DIAGNOSES: 1. Generalized anxiety disorder. 2. Rule out neurocognitive disorder behavioral disturbances. PLAN: Continue with behavioral management. This clinician has reviewed the patient's chart. Discussed treatment with treatment team. . Ev Park PsyD. DR: SUMANTH JOB#: [id number] CC:
--- NOTE | 2018-07-15 20:13 | Cardiology Report ---
APPROVED REPORT EKG Measurement Heart [id number] Normal sinus rhythm Low voltage QRS Inferior infarct, age undetermined Cannot rule out Anterior infarct, age undetermined Abnormal ECG
--- NOTE | 2018-07-16 08:59 | Discharge Summary ---
Discharge Summary Discharge Summary _ DATE OF ADMISSION: 07/10/2018 DATE OF DISCHARGE: 07/13/2018 REASON FOR ADMISSION: 83 y/old female, resident of shelter facility, with PMH of chronic osteomyelitis, dementia, hypertension , atrial fibrillation on anticoagulation, , hyperlipidemia, right femoral neck pathological fracture, was sent for evaluation due to infection in the left hip. Patient had left hip un-stageable pressure ulcer , present on admission. Patient reported draining at the site for several days . Patient was not on any antibiotics . She reported pain upon rolling from [id number], 6 out of 10 on a scale 1-10. No fever, no chills. Upon evaluation vital signs were stable, no fever. Laboratory workup revealed leukocytosis ,elevated lactic acid ,urinalysis with evidence of UTI. Troponin negative . EKG revealed normal sinus rhythm, no acute ischemic changes. Chest x-ray revealed hypoventilatory lungs with bibasilar lung atelectasis and mild interstitial prominence. CT of the abdomen and pelvis revealed 1. Vertical lucency bilateral in sacrum , may be insufficiency fractures. 2. Osteopenia. T9, T12, L1 and L3 mild compression deformities - age- indeterminate. 3. Colonic diverticulosis without acute diverticulitis. 4. 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 5. 5.3 cm fecal distended rectum. Moderate colonic stool load/constipation. 6. Small air in the urinary bladder may be from recent catheterization, correlate for gas producing cystitis. Thickening of the urinary bladder. Patient was admitted for further management CONSULTANTS: pulmonary Dr. Clark ID specialist Dr. Castellon surgery Dr. Martins psychiatrist Dr. Downey [facility] COURSE: Patient admitted to medical surgical floor and started on empiric antibiotics. ID consult was requested. Urine culture revealed E. coli and Proteus mirabilis. Blood culture 1 out of 4 revealed Diphtheroids, contaminant as per ID specialist. Wound culture of left hip showed MRSA. Antibiotic regimen optimized as per ID specialist recommendations. Patient status post prior 6 weeks of IV vancomycin and ceftriaxone in 06/2016. Venous duplex bilateral lower extremity revealed no evidence of acute DVT. Pain management was addressed. Wound care provided as per surgeon recommendations and to be continued at the shelter facility. Blood pressure was managed with beta-alexandr and PRESTON inhibitor. Rate was controlled with beta-alexandr. Patient was in sinus rhythm. Antiplatelet therapy with aspirin and statin were continued. Lipid panel was stable. No anticoagulation for now, given high risk for falls. Fall precaution maintained. Patient was working with physical and occupational therapists. Dietary recommendation implemented and plan of care to improve nutritional status. Aricept continued. Bowel regimen instituted. Supportive care provided. Psychiatrist seen and evaluated patient., diagnosed patient with major depressive disorder and possible generalized anxiety disorder. Psychiatric medication regimen was optimized as per epic [facility] specialists recommendations. Leukocytosis resolved. Patient afebrile . Patient was ready for discharge home with antibiotic regimen as per ID specialist recommendation. FINAL DIAGNOSES: Sepsis Left hip cellulitis with MRSA UTI with Proteus and E. coli Left hip chronic osteomyelitis Left hip pressure ulcer , present on admission un-stageable Osteopenia with multiple compression fracture ,probably old Hypertension Atrial fibrillation Functional quadriplegia Protein calorie malnutrition Dementia Major depressive disorder Possible generalized anxiety disorder DISCHARGE MEDICATIONS: See Medication Reconciliation list. List of medication was also sent to shelter facility DISCHARGE INSTRUCTIONS: Patient was discharged to the shelter facility. Follow up with medical doctor at the facility. Griselda Roberson NP Jul 16, 2018 08:59
== END 2018-07-13 22:15 | DRG 871 ==
LOC: EDBD 09:17 → EMR 09:45 → EDBEDREQ 11:44 → 4E 11:50 → EDBEDREQ 12:33 → 4E 21:07 → UNDODISIN 07-13 12:32
DX: A41.9 Sepsis, unspecified organism (principal); R53.2 Functional quadriplegia; L03.116 Cellulitis of left lower limb; N39.0 Urinary tract infection, site not specified; M86.48 Chronic osteomyelitis with draining sinus, other site; E46 Unspecified protein-calorie malnutrition; Z88.2 Allergy status to sulfonamides; I10 Essential (primary) hypertension; F03.90 Unspecified dementia, unspecified severity, without behavioral disturbance, psychotic disturbance, mood disturbance, and anxiety; I48.91 Unspecified atrial fibrillation; Z79.01 Long term (current) use of anticoagulants; E78.5 Hyperlipidemia, unspecified; B95.62 Methicillin resistant Staphylococcus aureus infection as the cause of diseases classified elsewhere; B96.4 Proteus (mirabilis) (morganii) as the cause of diseases classified elsewhere; B96.20 Unspecified Escherichia coli [E. coli] as the cause of diseases classified elsewhere; M85.80 Other specified disorders of bone density and structure, unspecified site; F32.9 Major depressive disorder, single episode, unspecified; F41.1 Generalized anxiety disorder; L89.220 Pressure ulcer of left hip, unstageable; K57.90 Diverticulosis of intestine, part unspecified, without perforation or abscess without bleeding; M84.451D Pathological fracture, right femur, subsequent encounter for fracture with routine healing; M48.56XD Collapsed vertebra, not elsewhere classified, lumbar region, subsequent encounter for fracture with routine healing; M48.54XD Collapsed vertebra, not elsewhere classified, thoracic region, subsequent encounter for fracture with routine healing
CPT/HCPCS: 36415; 71045; 74176; 80048; 80053; 80061; 81003; 82550; 83605; 83735; 83880; 84443; 84484; 85025; 85610; 85651; 85730; 86140; 86850; 86900; 86901; 87040; 87070; 87081; 87086; 87181; 87205; 93005; 93970; 94664; 96361; 96365; 96367; 97803; 99283; 99285